=== PATIENT | female | born 1980 | race Caucasian/White ===

== ENCOUNTER 2022-06-12 13:26 | Inpatient (IN) | payer SELFPAY ==
[2022-06-12] MEDS ORDERED: Diazepam 10 MG/2 ML SYRINGE ONE ×5 (13:44→16:08)
[2022-06-12 14:03] LABS: #Basophils 0.2 10x3/uL (0.0-0.2); #Monocytes 0.6 10x3/uL (0.0-1.1); #Neutrophils 4.7 10x3/uL (1.5-8.4); %Basophils 2.4 % (0.0-2.0); %Eosinophils 0.1 % (0.0-6.0); %Lymphocytes 29.2 % (18.0-47.0); %Monocytes 8.1 % (0.0-10.0); %Neutrophils 59.8 % (40.0-75.0); Hemoglobin 12.9 g/dL (12.0-15.5); Mean Corpuscular HGB CONC 34.1 g/dL (32.0-36.0); Mean Corpuscular Hemoglobin 31.7 pg (27.0-33.0); Mean Corpuscular Volume 92.9 fl (81.6-98.3); Mean Platelet Volume 8.6 fl (7.4-10.4); Platelet Count 488 10x3/uL (150-450); RBC Distribution Width 17.1 % (11.5-14.5); Red Blood Cell (RBC) Count 4.07 10x6/uL (3.90-5.03); White Blood Cell (WBC) Count 7.8 10x3/uL (3.5-10.5)
[2022-06-12 14:10] LABS: Bilirubin Neg (Negative); Blood, Urine 150 (Negative); Clarity Clear (Clear); Glucose, Urine (Dipstick) Normal (Negative); Ketone, Urine Negative (Negative); Leukocyte Negative (Negative); Nitrite Negative (Negative); Protein, Urine (Dipstick) Negative (Neg-Trace); Specific Gravity, Urine 1.005 (1.005-1.030); Urobilinogen Normal mg/dL (Less than 2)
[2022-06-12 14:13] LABS: Pregnancy Test - Urine (BHCG) Negative (Negative); Pregu Control Background? CLEAR/WHITE (CLR/WHITE); Pregu Control Bar Appear? YES (CONTROL BAR); Specific Gravity 1.005 (1.002-1.036)
[2022-06-12 14:18] LABS: Amphetamine Not Detected (NotDetected); Barbiturates Screen Not Detected (NotDetected); Benzodiazepine Screen Not Detected (NotDetected); Cocaine Metabolite Screen Not Detected (NotDetected); Methadone Not Detected (NotDetected); Methamphetamine Not Detected (NotDetected); Opiate Screen Not Detected (NotDetected); Oxycodone Screen Not Detected (NotDetected); Phencyclidine (PCP) Not Detected (NotDetected); THC/Cannabinoid Screen Not Detected (NotDetected); Tricyclic Screen Not Detected (NotDetected)
[2022-06-12] MEDS ORDERED: Thiamine HCl 200 MG/2 ML VIAL ONE (14:18)
[2022-06-12 14:21] LABS: Bacteria/HPF Rare-Few HPF (None Seen); RBC/HPF 0-3 HPF (0-3); Squamous Epithelial 0-3 HPF (0-3); WBC/HPF 0-3 HPF (0-3)
[2022-06-12 14:56] LABS: ALT (SGPT) 33 U/L (8-55); AST (SGOT) 72 U/L (5-34); Acetaminophen Less than 10.0 mcg/mL (10.0-30.0); Alcohol 405 mg/dL (Less than 10); Alkaline Phosphatase 100 U/L (40-110); Anion Gap 17 mmol/L (10-20); BUN (Urea Nitrogen) 5 mg/dL (7.0-18.7); Bilirubin, Total 0.1 mg/dL (0.2-1.2); Calc. Creatinine Clearance 0 mL/min (70-130); Calcium 8.9 mg/dL (7.8-10.44); Carbon Dioxide 24 mmol/L (22-29); Chloride 108 mmol/L (98-107); Estimated GFR 111; Globulin 3.1 g/dL (2.4-3.5); Glucose 82 mg/dL (70-105); Magnesium 2.1 mg/dL (1.6-2.6); Potassium 4.3 mmol/L (3.5-5.1); Protein, Total 7.1 g/dL (6.0-8.3); Salicylate Less than 8.0 mg/dL (15.0-30.0); Sodium 145 mmol/L (136-145)
[2022-06-12] MEDS ORDERED: Nicotine 14 MG PATCH ONE (15:14)
[2022-06-12] MEDS ORDERED: Ondansetron ODT 4 MG TAB PO PRN (15:43)
[2022-06-12] MEDS ORDERED: Lorazepam 2 MG/ML VIAL IM PRN (15:43)
[2022-06-12] MEDS ORDERED: Lorazepam 1 MG TAB PO PRN (15:43)
[2022-06-12] MEDS ORDERED: Electrolyte Replacement Protocol 1 EACH FS SCH (15:45)
[2022-06-12] MEDS ORDERED: Thiamine HCl 200 MG/2 ML VIAL SLOW IVP SCH ×2 (15:45→17:00)
[2022-06-12] MEDS ORDERED: Lactated Ringer's 1,000 ML IV SCH (16:00)
[2022-06-12] MEDS ORDERED: Multivitamins, Adult 10 ML, Folic Acid 1 MG, Thiamine HCl 100 MG in Dextrose 5 %-0.45 %... IV SCH (16:30)
[2022-06-12] MEDS ORDERED: Folic Acid 5 MG/ML MDV SC SCH ×2 (17:00→20:00)
[2022-06-12] MEDS ORDERED: Dextrose 5 %-0.45 % NaCl 1,000 ML IV SCH (17:00)
[2022-06-12] MEDS ORDERED: Multivit, Therapeutic 1 TAB PO SCH (17:00)
[2022-06-12 17:31] VITALS: BMI 23.6
[2022-06-12 18:00] LABS: Syphilis Antibody Nonreactive (Nonreactive); Syphilis Antibody Index 0.06 S/CO (<1.00 Non-Reactive)
[2022-06-12] MEDS: Dexmedetomidine In 0.9 % NaCl 400 MCG in Premix Bag 1 BAG IVPB SCH ×2 (18:27→23:15)
[2022-06-12] MEDS: Lorazepam 1 MG TAB PO SCH ×2 (19:23→22:05)
[2022-06-12] MEDS: Sodium Chloride 0.9% 1,000 ML IV SCH (19:36)
[2022-06-13 01:16] LABS: #Basophils 0.1 10x3/uL (0.0-0.2); #Monocytes 0.4 10x3/uL (0.0-1.1); #Neutrophils 2.4 10x3/uL (1.5-8.4); %Basophils 2.5 % (0.0-2.0); %Eosinophils 0.6 % (0.0-6.0); %Lymphocytes 43.8 % (18.0-47.0); %Monocytes 6.7 % (0.0-10.0); %Neutrophils 46.2 % (40.0-75.0); Hemoglobin 10.2 g/dL (12.0-15.5); Mean Corpuscular HGB CONC 33.2 g/dL (32.0-36.0); Mean Corpuscular Hemoglobin 31.5 pg (27.0-33.0); Mean Corpuscular Volume 94.8 fl (81.6-98.3); Mean Platelet Volume 8.5 fl (7.4-10.4); Platelet Count 336 10x3/uL (150-450); RBC Distribution Width 16.7 % (11.5-14.5); Red Blood Cell (RBC) Count 3.24 10x6/uL (3.90-5.03); White Blood Cell (WBC) Count 5.3 10x3/uL (3.5-10.5)
[2022-06-13 01:32] LABS: ALT (SGPT) 23 U/L (8-55); AST (SGOT) 48 U/L (5-34); Albumin 3.2 g/dL (3.5-5.0); Alkaline Phosphatase 71 U/L (40-110); Anion Gap 15 mmol/L (10-20); BUN (Urea Nitrogen) 5 mg/dL (7.0-18.7); Bilirubin, Direct 0.1 mg/dL (0.1-0.3); Bilirubin, Total 0.2 mg/dL (0.2-1.2); Calc. Creatinine Clearance 100 mL/min (70-130); Calcium 7.7 mg/dL (7.8-10.44); Carbon Dioxide 20 mmol/L (22-29); Chloride 108 mmol/L (98-107); Estimated GFR 112; Globulin 2.1 g/dL (2.4-3.5); Glucose 89 mg/dL (70-105); Magnesium 1.7 mg/dL (1.6-2.6); Phosphorus 4.4 mg/dL (2.3-4.7); Potassium 3.8 mmol/L (3.5-5.1); Protein, Total 5.3 g/dL (6.0-8.3); Sodium 139 mmol/L (136-145)
[2022-06-13] MEDS: Lorazepam 1 MG TAB PO SCH ×4 (03:28→21:49)
[2022-06-13 03:30] LABS: #Basophils 0.1 10x3/uL (0.0-0.2); #Monocytes 0.4 10x3/uL (0.0-1.1); #Neutrophils 2.6 10x3/uL (1.5-8.4); %Eosinophils 0.4 % (0.0-6.0); %Lymphocytes 42.5 % (18.0-47.0); %Monocytes 7.8 % (0.0-10.0); %Neutrophils 47.1 % (40.0-75.0); Hemoglobin 10.1 g/dL (12.0-15.5); Mean Corpuscular HGB CONC 33.3 g/dL (32.0-36.0); Mean Corpuscular Hemoglobin 31.3 pg (27.0-33.0); Mean Corpuscular Volume 93.8 fl (81.6-98.3); Mean Platelet Volume 8.7 fl (7.4-10.4); Platelet Count 359 10x3/uL (150-450); RBC Distribution Width 16.4 % (11.5-14.5); Red Blood Cell (RBC) Count 3.23 10x6/uL (3.90-5.03); White Blood Cell (WBC) Count 5.5 10x3/uL (3.5-10.5)
[2022-06-13 03:44] LABS: ALT (SGPT) 24 U/L (8-55); AST (SGOT) 47 U/L (5-34); Albumin 3.1 g/dL (3.5-5.0); Alkaline Phosphatase 75 U/L (40-110); Anion Gap 15 mmol/L (10-20); BUN (Urea Nitrogen) 5 mg/dL (7.0-18.7); Bilirubin, Total 0.2 mg/dL (0.2-1.2); Calc. Creatinine Clearance 97 mL/min (70-130); Calcium 7.6 mg/dL (7.8-10.44); Carbon Dioxide 22 mmol/L (22-29); Chloride 106 mmol/L (98-107); Estimated GFR 111; Globulin 2.2 g/dL (2.4-3.5); Glucose 103 mg/dL (70-105); Potassium 3.6 mmol/L (3.5-5.1); Protein, Total 5.3 g/dL (6.0-8.3); Sodium 139 mmol/L (136-145)
[2022-06-13] MEDS ORDERED: Magnesium 2 GM/50 ML(in water) 2 GM in Premix Bag 1 BAG IVPB SCH (04:00)
[2022-06-13] MEDS: Sodium Chloride 0.9% 1,000 ML IV SCH ×4 (05:31→17:23)
[2022-06-13] MEDS: Thiamine 100 MG TAB PO SCH (09:35)
[2022-06-13] MEDS: Folic Acid 1 MG TAB PO SCH (09:35)
[2022-06-13] MEDS: Multivit, Therapeutic 1 TAB PO SCH (09:35)
[2022-06-13] MEDS: Dexmedetomidine In 0.9 % NaCl 400 MCG in Premix Bag 1 BAG IVPB SCH (09:36)
[2022-06-13] MEDS: Pantoprazole 40 MG VIAL IVP SCH (09:36)
[2022-06-13] MEDS ORDERED: Nicotine 14 MG PATCH TD SCH (15:00)
[2022-06-13] MEDS ORDERED: Lorazepam 1 MG TAB PO PRN (15:43)
[2022-06-13 20:41] VITALS: TEMP 98.3
[2022-06-14] MEDS: Sodium Chloride 0.9% 1,000 ML IV SCH (02:34)
[2022-06-14] MEDS: Lorazepam 1 MG TAB PO SCH ×2 (03:39→09:25)
[2022-06-14 04:12] LABS: #Basophils 0.1 10x3/uL (0.0-0.2); #Eosinphils 0.2 10x3/uL (0.0-0.5); #Monocytes 0.6 10x3/uL (0.0-1.1); #Neutrophils 4.8 10x3/uL (1.5-8.4); %Basophils 1.4 % (0.0-2.0); %Eosinophils 2.2 % (0.0-6.0); %Lymphocytes 21.3 % (18.0-47.0); %Monocytes 7.7 % (0.0-10.0); Hemoglobin 11.8 g/dL (12.0-15.5); Mean Corpuscular HGB CONC 33.1 g/dL (32.0-36.0); Mean Corpuscular Hemoglobin 31.5 pg (27.0-33.0); Mean Corpuscular Volume 94.9 fl (81.6-98.3); Mean Platelet Volume 9.1 fl (7.4-10.4); Platelet Count 371 10x3/uL (150-450); Red Blood Cell (RBC) Count 3.75 10x6/uL (3.90-5.03); White Blood Cell (WBC) Count 7.2 10x3/uL (3.5-10.5)
[2022-06-14 04:26] LABS: Anion Gap 13 mmol/L (10-20); BUN (Urea Nitrogen) Less than 4 mg/dL (7.0-18.7); Calc. Creatinine Clearance 100 mL/min (70-130); Calcium 8.9 mg/dL (7.8-10.44); Carbon Dioxide 21 mmol/L (22-29); Chloride 107 mmol/L (98-107); Estimated GFR 112; Glucose 97 mg/dL (70-105); Potassium 3.5 mmol/L (3.5-5.1); Sodium 137 mmol/L (136-145)
[2022-06-14] MEDS ORDERED: Magnesium 2 GM/50 ML(in water) 2 GM in Premix Bag 1 BAG IVPB SCH (08:00)
[2022-06-14] MEDS ORDERED: Potassium Chloride 20 MEQ TAB PO SCH (08:00)
[2022-06-14 08:45] VITALS: BP 163/109
[2022-06-14] MEDS: Multivit, Therapeutic 1 TAB PO SCH (09:24)
[2022-06-14] MEDS: Folic Acid 1 MG TAB PO SCH (09:24)
[2022-06-14] MEDS: Thiamine 100 MG TAB PO SCH (09:24)
[2022-06-14] MEDS: Pantoprazole 40 MG VIAL IVP SCH (09:24)
[2022-06-14 13:17] LABS: Potassium 4.1 mmol/L (3.5-5.1)
[2022-06-14] MEDS ORDERED: Lorazepam 1 MG TAB PO PRN (15:43)
[2022-06-14] MEDS ORDERED: Lorazepam 0.5 MG TAB PO SCH (15:45)
[2022-06-15] MEDS ORDERED: Lorazepam 0.5 MG TAB PO PRN (15:43)
[2022-06-15] MEDS ORDERED: FLU VACC QS2022-23(6MO UP)/PF 60 MCG/0.5 ML SYRINGE IM ONE (18:30)
== END 2022-06-14 13:29 | DRG 897 ==
LOC: CSHERS 13:26 → CSHIMCU 16:21
PROVIDERS: ADMIT Internal Medicine; ATTEND Internal Medicine
PROC: HZ2ZZZZ Detoxification Services for Substance Abuse Treatment (ICD-10-PCS; principal; 2022-06-12)
DX: F10.231 Alcohol dependence with withdrawal delirium (principal); F10.221 Alcohol dependence with intoxication delirium; F17.210 Nicotine dependence, cigarettes, uncomplicated; F41.9 Anxiety disorder, unspecified; Y90.8 Blood alcohol level of 240 mg/100 ml or more; Z98.890 Other specified postprocedural states; Z71.41 Alcohol abuse counseling and surveillance of alcoholic; Z82.49 Family history of ischemic heart disease and other diseases of the circulatory system; Z80.1 Family history of malignant neoplasm of trachea, bronchus and lung; Z80.51 Family history of malignant neoplasm of kidney; Z80.8 Family history of malignant neoplasm of other organs or systems
CPT/HCPCS: 36415; 70450; 80048; 80053; 80306; 80307; 81003; 81015; 81025; 82248; 82550; 83735; 84100; 84146; 85025; 86780; 96374; 96375; 96376; C9113; J1650; J3360; J3411; J3475; J7042; J7050